=== PATIENT | male | born 1950 | race Caucasian/White ===

== ENCOUNTER 2019-01-24 22:58 | Emergency (ER) | payer MEDICARE, BC ==
[2019-01-24] MEDS ORDERED: Succinylcholine 200 MG/10 ML MDV ONE (23:09)
[2019-01-24] MEDS ORDERED: Midazolam 1 MG/ML 2 ML SDV ONE ×2 (23:09)
[2019-01-24] MEDS ORDERED: Rocuronium 50 MG/5 ML Vial ONE ×2 (23:09)
[2019-01-24] MEDS ORDERED: Sodium Chloride 0.9% 1,000 ML IV ONE (23:10)
--- NOTE | 2019-01-24 23:24 | PCM.PRNOTE ---
- Free Text/Narrative Note: Intubation note: Was called to the emergency room for a patient who for rested in the field and was shocked twice.The patient is found to have spontaneous respirations. SaO2 was approximately 92% on nonrebreather facemask. Patient was minimally responsive to painful stimuli. I was requested to intubate this patient for transport [place] via [facility]. Ambu and intubation equipment was assembled. Glidescope was set up and checked. Patient was Ambued with 100% O2. The patient was prepped with ChloraPrep orally. The patient was given succinylcholine 100 mg IV. This was allowed to circulate and the patient was Ambued throughout. Visualization using a Glidescope was obtained. A 8.0 mm ID endotracheal tube was advanced using a rigid stylet. Oropharynx was clear.ET tube [was pass passed through the glottic opening. The tube was held in place and the stylet was removed. The tube was advanced to 23 cm at the teeth. Balloon was inflated with 10 mL of air. End tidal CO2 was positive at 38 mmHg. Breath sounds or positive over of all lung diaz and negative over the epigastric area. Tube was secured with a bite block securing device. Ambu with 100% O2 was continued. Rocuronium 50 mg IV was given. Chest x-ray was ordered. Report given to nursing staff.
[2019-01-25 00:04] LABS: CHLORIDE,CL 105 mmol/L (98-107); SODIUM,NA 143 mmol/L (136-145)
[2019-01-25 00:07] LABS: ANION GAP 22.8 mmol/L (10-20)
--- NOTE | 2019-01-25 00:07 | EDM.PDOC ---
ED HPI GENERAL MEDICAL PROBLEM - General Chief Complaint: CPR in Progress Stated Complaint: CPR Time Seen by Provider: 01/24/19 23:33 Source of Information: Reports: EMS, Family History Limitations: Reports: Other (non responsive) - History of Present Illness INITIAL COMMENTS - FREE TEXT/NARRATIVE: Patient brought to the ER after post coital witnessed cardiac arrest. According to EMS, 2 shocks given for V-Fib. ROSC returned, 12 lead showed a- fib with STEMI. EKG here does not show STEMI. None responsive. Patient intubated given 100 mg of succinylcholine, 50 zemuron, 4 mg versed. 2 large bore iv's started, keith catheter inserted, active cooling with cool fluids and ice to axilla, groin. In contact with [employer] from [place] Onset: Today, Sudden - Related Data Allergies Allergy/AdvReac Type Severity Reaction Status Date / Time No Known Allergies Allergy Verified 04/26/17 08:40 ED ROS GENERAL - Review of Systems Review Of Systems: Unable To Obtain ED EXAM, CPR - Physical Exam Exam: See Below Limited By: Respiratory Distress, Unresponsive General Appearance: Severe Distress, Obese Eye Exam: Bilateral Eye: PERRL (non reactive to pen light) Ears: Normal TMs Nose: Normal Inspection, Normal Mucosa, No Blood Throat/Mouth: Normal Inspection, Normal Lips, Normal Teeth, Normal Gums, Normal Oropharynx, Normal Voice, No Airway Compromise Head: Atraumatic, Normocephalic Neck: N, S, NON, FUL Respiratory Chest: Lungs Clear, Other (lungs clear on auscultation, intubated, bilateral lung sounds) Cardiovascular: Other (pulse erratic, sinus tach) GI/Abdominal Exam: Normal Bowel Sounds, Soft 1+: Posterior-Tibial (R), Posterior-Tibial (L), Dorsalis-Pedis (R), Dorsalis- Pedis (L) Extremities: Pallor Neurological: Unresponsive Skin Exam: Diaphoretic Course - Orders/Labs/Meds Orders: Active Orders 24 hr Category Date Time Status Chest 1V Frontal [CR] Stat Exams 01/24/19 23:24 Taken Labs: Laboratory Tests 01/24/19 01/24/19 01/24/19 Range/Units 23:09 23:09 23:09 WBC 12.9 H (4.0-10.0) x10^3/uL RBC 4.63 (4.5-6.0) x10^6/uL Hgb 13.9 L (14.0-18.0) g/dL Hct 42.2 (40.0-52.0) % MCV 91.1 (78.0-93.0) fL MCH 30.0 (26.0-32.0) pg MCHC 32.9 (32.0-36.0) g/dL RDW Coeff of Randy 13.5 (10.0-15.0) % Plt Count 211 (130-400) x10^3/uL Add Manual Diff Yes Neutrophils % (Manual) 45 L (50-80) % Band Neutrophils % 1 (0-6) % Lymphocytes % (Manual) 47 (25-50) % Monocytes % (Manual) 4 (2-11) % Eosinophils % (Manual) 2 (0-4) % Metamyelocytes % 1 H (0) % Platelet Estimate Adequate PT 10.2 (10.0-12.8) SEC INR 0.9 L (2.0-3.5) POC ABG pH (7.35-7.45) POC ABG pCO2 (35-45) mmHG POC ABG pO2 (80-105) mmHG POC ABG HCO3 (22-26) mmol/L POC ABG Total CO2 (23-27) mmol/L POC ABG O2 Sat (95-98) % POC ABG Base Excess (-2-3) mmol/L POC FiO2 Sodium 143 (136-145) mmol/L Potassium 3.8 (3.5-5.1) mmol/L Chloride 105 (98-107) mmol/L Carbon Dioxide 19 L (21-32) mmol/L Anion Gap 22.8 H (10-20) mmol/L BUN 25 H (7-18) mg/dL Creatinine 1.3 (0.70-1.30) mg/dL Est Cr Clr Drug Dosing TNP Estimated GFR (MDRD) 55 Glucose 156 H (74-106) mg/dL Calcium 8.6 (8.5-10.1) mg/dL Corrected Calcium 8.92 (8.5-10.1) mg/dL Total Bilirubin 0.5 (0.2-1.0) mg/dL AST 229 H (15-37) U/L ALT 202 H (16-63) U/L Alkaline Phosphatase 89 (46-116) U/L Creatine Kinase 482 H* (39-308) U/L POC Troponin I (0.00-0.08) ng/mL Total Protein 6.5 (6.4-8.2) g/dL Albumin 3.6 (3.4-5.0) g/dL Globulin 2.9 Albumin/Globulin Ratio 1.24 01/24/19 01/24/19 Range/Units 23:20 23:45 WBC (4.0-10.0) x10^3/uL RBC (4.5-6.0) x10^6/uL Hgb (14.0-18.0) g/dL Hct (40.0-52.0) % MCV (78.0-93.0) fL MCH (26.0-32.0) pg MCHC (32.0-36.0) g/dL RDW Coeff of Randy (10.0-15.0) % Plt Count (130-400) x10^3/uL Add Manual Diff Neutrophils % (Manual) (50-80) % Band Neutrophils % (0-6) % Lymphocytes % (Manual) (25-50) % Monocytes % (Manual) (2-11) % Eosinophils % (Manual) (0-4) % Metamyelocytes % (0) % Platelet Estimate PT (10.0-12.8) SEC INR (2.0-3.5) POC ABG pH 7.237 L* (7.35-7.45) POC ABG pCO2 52 H (35-45) mmHG POC ABG pO2 148 H (80-105) mmHG POC ABG HCO3 22 (22-26) mmol/L POC ABG Total CO2 24 (23-27) mmol/L POC ABG O2 Sat 99 H (95-98) % POC ABG Base Excess -5 L (-2-3) mmol/L POC FiO2 1.00 Sodium (136-145) mmol/L Potassium (3.5-5.1) mmol/L Chloride (98-107) mmol/L Carbon Dioxide (21-32) mmol/L Anion Gap (10-20) mmol/L BUN (7-18) mg/dL Creatinine (0.70-1.30) mg/dL Est Cr Clr Drug Dosing Estimated GFR (MDRD) Glucose (74-106) mg/dL Calcium (8.5-10.1) mg/dL Corrected Calcium (8.5-10.1) mg/dL Total Bilirubin (0.2-1.0) mg/dL AST (15-37) U/L ALT (16-63) U/L Alkaline Phosphatase (46-116) U/L Creatine Kinase (39-308) U/L POC Troponin I 0.05 (0.00-0.08) ng/mL Total Protein (6.4-8.2) g/dL Albumin (3.4-5.0) g/dL Globulin Albumin/Globulin Ratio Meds: Medications Discontinued Medications Generic Name Dose Route Start Last Admin Trade Name Freq PRN Reason Stop Dose Admin Midazolam HCl Confirm 01/25/19 00:55 Versed 1 Mg/Ml Administered 01/25/19 00:56 Dose 8 mg .ROUTE .STK-MED ONE Departure - Departure Time of Disposition: 00:15 Disposition: DC/Tfer to [facility] Clinical Impression: Cardiac arrest - Discharge Information *PRESCRIPTION DRUG MONITORING PROGRAM REVIEWED*: Not Applicable *COPY OF PRESCRIPTION DRUG MONITORING REPORT IN PATIENT OLAMIDE: Not Applicable Referrals: Rocio Bernardo, [Primary Care Provider] - Forms: ED Department Discharge ED Communication - ED Communication Date/Time Date: 01/24/19 Time Called: 23:45 - Discussed Case With (1) Discussed Case With (1): Admitting Provider (Dr. Ash in ICU and Dr. Crowe in cardiology consulted. Sebastien did not believe urgent cath needed, will be admitted to ICU) - Problem List & Annotations (1) Cardiac arrest SNOMED Code(s): 840727482 Code(s): I46.9 - CARDIAC ARREST, CAUSE UNSPECIFIED Status: Acute Priority : High Current Visit: Yes - Problem List Review Problem List Initiated/Reviewed/Updated: Yes - My Orders Last 24 Hours: My Active Orders 01/24/19 23:24 Chest 1V Frontal [CR] Stat - Assessment/Plan Last 24 Hours: My Active Orders 01/24/19 23:24 Chest 1V Frontal [CR] Stat Assessment:: cardiac arrest witnessed Plan: transfer to [place] with flight
[2019-01-25] MEDS ORDERED: Midazolam 1 MG/ML 2 ML SDV ONE (00:55)
--- NOTE | 2019-01-25 08:37 | CR ---
[id number] RAD/RAD Chest PA or AP 1V EXAM: RAD Chest PA or AP 1V INDICATION: CARDIAC ARREST, INTUBATED COMPARISON: Chest CT from March 2018. DISCUSSION: Endotracheal tube has been placed. Tip is at the level of the clavicle heads approximate 75 mm above the yg. Cardiomediastinal silhouette is enlarged. Central vascular congestion. Low lung volumes. No pneumothorax. IMPRESSION: As above. Josue Ren MD 01/25/19 0836 Thank you for allowing us to participate in the care of your patient.
== END 2019-01-25 00:25 | disposition short-term general hospital (02) ==
LOC: VM.ED 22:58
DX: I46.9 Cardiac arrest, cause unspecified (principal)
CPT/HCPCS: 31500; 36415; 36600; 51702; 71045; 80053; 82550; 82803; 84484; 85025; 85610; 92950; 93005; 94002; 96361; 96374; 96375; 96376; 99285; 99291; 99292; J0330; J2250; J7030

== ENCOUNTER 2021-10-27 11:39 | Emergency (ER) | payer MEDICARE, BC ==
[2021-10-27] MEDS ORDERED: Sodium Chloride 0.9% 10 ML Syringe FLUSH PRN (12:07)
[2021-10-27 12:35] LABS: CHLORIDE,CL 103 mmol/L (98-107); SODIUM,NA 138 mmol/L (136-145)
[2021-10-27] MEDS ORDERED: Aspirin 81 MG Tab.Chew PO ONE (12:45)
[2021-10-27] MEDS ORDERED: Nitroglycerin 0.4 MG Tab.SL SL ONE (12:45)
[2021-10-27 12:49] LABS: ANION GAP 16.2 mmol/L (5-15)
[2021-10-27] MEDS ORDERED: Heparin Sodium 5,000 Units/ML Vial IVPUSH ONE (14:12)
[2021-10-27] MEDS ORDERED: Heparin Sodium/0.45% NaCl 25,000 UNITS/500 ML BAG IV SCH (14:15)
== END 2021-10-27 17:22 | disposition short-term general hospital (02) ==
LOC: VM.ED 11:39
DX: R55 Syncope and collapse (principal); R93.1 Abnormal findings on diagnostic imaging of heart and coronary circulation; Z79.82 Long term (current) use of aspirin; Z79.02 Long term (current) use of antithrombotics/antiplatelets; Z79.899 Other long term (current) drug therapy
CPT/HCPCS: 70450; 71045; 80053; 81003; 83735; 83880; 84484; 85025; 85610; 85730; 93005; 96365; 96366; 99284; 99285-25; A9270-GY; J1644